=== PATIENT | male | born 1980 ===

== ENCOUNTER 2022-03-02 11:00 | Inpatient (IN) ==
[2022-03-02] MEDS ORDERED: diphenhydrAMINE CAP 25 MG CAPSULE PO PRN (11:02)
[2022-03-02] MEDS ORDERED: ALUMINUM/MAGNES/SIMETH MAX STR 30 ML UDCUP PO PRN (11:02)
[2022-03-02] MEDS ORDERED: ZALEPLON 5 MG CAPSULE PO PRN (11:02)
[2022-03-02] MEDS ORDERED: hydrALAZINE 20 MG/1 ML VIAL IV PRN (11:02)
[2022-03-02] MEDS ORDERED: ACETAMINOPHEN 325 MG TABLET PO PRN (11:02)
[2022-03-02] MEDS ORDERED: POTASSIUM CHLORIDE 20 MEQ TABLET PO PRN (11:02)
[2022-03-02] MEDS ORDERED: MAGNESIUM SULF RIDER 2 GM/50 ML PREMIX IV PRN (11:02)
[2022-03-02] MEDS ORDERED: DOCUSATE SODIUM 100 MG CAPSULE PO PRN (11:02)
[2022-03-02] MEDS ORDERED: PROMETHAZINE 25 MG TABLET PO PRN (11:02)
[2022-03-02] MEDS ORDERED: guaiFENesin/DM ER 600-30 MG TABLET PO PRN (11:02)
[2022-03-02] MEDS ORDERED: MAGNESIUM SULF RIDER 4 GM/100 ML PREMIX IV PRN (11:02)
[2022-03-02] MEDS ORDERED: ONDANSETRON 4 MG/2 ML VIAL IV PRN (11:02)
[2022-03-02] MEDS ORDERED: SODIUM CHLORIDE 0.9% 1,000 ML IV SCH (11:30)
[2022-03-02] MEDS ORDERED: LIDOCAINE 1% 50 ML VIAL MISC INJ ONE (11:42)
[2022-03-02] MEDS ORDERED: fentaNYL 100 MCG/2 ML VIAL IV ONE (11:42)
[2022-03-02] MEDS ORDERED: MIDAZOLAM 2 MG/2 ML VIAL IV ONE (11:42)
[2022-03-02] MEDS ORDERED: SODIUM CHLORIDE 0.9% 500 ML IV ONE (11:42)
[2022-03-02] MEDS: METOPROLOL TARTRATE 25 MG TABLET PO SCH ×2 (12:47→21:01)
[2022-03-02] MEDS: ALBUTEROL 2.5 MG/3 ML NEB RESP TX SCH ×2 (13:24→19:28)
[2022-03-02] MEDS: MORPHINE 2 MG/1 ML SYRINGE IV PRN ×2 (13:49→18:17)
[2022-03-02 19:21] LABS: Barbiturates Screen,Urine Negative (Negative); Benzodiazepines Screen,Urine Positive (Negative); Cannabinoid Screen,Urine Positive (Negative); Opiate Screen,Urine Positive (Negative); Phencyclidine Screen,Urine Negative (Negative)
[2022-03-02] MEDS: NICOTINE 21 MG/24 HR PATCH TRANSDERM SCH (19:31)
[2022-03-02] MEDS: TICAGRELOR 90 MG TABLET PO SCH (20:59)
[2022-03-03] MEDS: ALBUTEROL 2.5 MG/3 ML NEB RESP TX SCH ×3 (00:07→12:16)
[2022-03-03] MEDS: MORPHINE 2 MG/1 ML SYRINGE IV PRN ×4 (02:00→21:29)
[2022-03-03 04:22] LABS: Basophils % 0.2 % (0.0-0.8); Eosinophils # 0.2 10*3/uL (0.0-0.87); Eosinophils % 1.5 % (0.00-10.9); Hemoglobin 8.9 GM/DL (14.0-18.0); Immature Granulocytes % 0.4 %; Immature Granulocytes Absolute 0.05 #; Lymphocytes # 2.1 10*3/uL (1.4-4.0); Lymphocytes % 16.2 % (21.2-54.2); Mean Corpuscular HGB Conc 27.1 GM/DL (32-36); Mean Corpuscular Volume 71.8 FL (87-102); Mean Platelet Volume 9.7 FL (9.6-12.0); Monocytes # 1.4 10*3/uL (0.11-0.8); Monocytes % 10.7 % (1.7-12.7); Platelet Count 371 T/CUMM (130-400); Red Blood Count 4.58 MC/CUMM (3.8-5.5); Red Cell Distribution Width 20.1 % (9.3-17.3); White Blood Count 12.7 T/CUMM (4-12)
[2022-03-03 04:33] LABS: Hematocrit 32.9 VOL% (42.0-52.0)
[2022-03-03 04:43] LABS: Risk Ratio 3.03; VLDL Cholesterol 17.6 MG/DL
[2022-03-03 04:56] LABS: Calcium 9.2 MG/DL (8.5-10.1); Osmolality,Calculated 274.7 MOS/KG (273-304); Potassium 5.1 MMOL/L (3.5-5.1)
[2022-03-03 07:45] LABS: % Iron Saturation 4.3 % (18-50); Ferritin 10.9 ng/mL (26-388)
[2022-03-03 07:46] LABS: CKMB % 7.14 %
[2022-03-03] MEDS: ENOXAPARIN 80 MG/0.8 ML SYRINGE SUBCUT SCH ×3 (07:55→21:29)
[2022-03-03] MEDS: METOPROLOL TARTRATE 25 MG TABLET PO SCH ×2 (08:13→21:28)
[2022-03-03] MEDS: TICAGRELOR 90 MG TABLET PO SCH (08:13)
[2022-03-03] MEDS: PANTOPRAZOLE 40 MG TABLET PO SCH (08:13)
[2022-03-03] MEDS: ROSUVASTATIN 20 MG TABLET PO SCH (08:13)
[2022-03-03] MEDS: NICOTINE 21 MG/24 HR PATCH TRANSDERM SCH (08:13)
[2022-03-03] MEDS: VALSARTAN 80 MG TABLET PO SCH (08:13)
[2022-03-03] MEDS: ASPIRIN EC 81 MG TABLET PO SCH (08:14)
[2022-03-03] MEDS ORDERED: CLOPIDOGREL 300 MG TABLET PO ONE (08:19)
[2022-03-03] MEDS: FERROUS SULFATE 325 MG TABLET PO SCH ×2 (09:13→21:28)
[2022-03-03] MEDS ORDERED: KETOROLAC 30 MG/1 ML VIAL IV ONE (09:20)
[2022-03-04] MEDS: MORPHINE 2 MG/1 ML SYRINGE IV PRN ×2 (03:21→08:16)
[2022-03-04 04:42] LABS: Calcium 9.3 MG/DL (8.5-10.1); Osmolality,Calculated 278.5 MOS/KG (273-304); Potassium 3.9 MMOL/L (3.5-5.1)
[2022-03-04 04:46] LABS: Basophils % 0.3 % (0.0-0.8); Eosinophils # 0.2 10*3/uL (0.0-0.87); Eosinophils % 2.5 % (0.00-10.9); Hemoglobin 8.8 GM/DL (14.0-18.0); Immature Granulocytes % 0.5 %; Immature Granulocytes Absolute 0.05 #; Lymphocytes # 2.5 10*3/uL (1.4-4.0); Lymphocytes % 26.1 % (21.2-54.2); Mean Corpuscular HGB Conc 27.6 GM/DL (32-36); Mean Corpuscular Volume 70.1 FL (87-102); Mean Platelet Volume 10.3 FL (9.6-12.0); Monocytes # 1.2 10*3/uL (0.11-0.8); Monocytes % 12.8 % (1.7-12.7); Neutrophils % 57.8 % (38.7-73.9); Platelet Count 399 T/CUMM (130-400); Red Blood Count 4.55 MC/CUMM (3.8-5.5); Red Cell Distribution Width 20.3 % (9.3-17.3); White Blood Count 9.5 T/CUMM (4-12)
[2022-03-04 04:49] LABS: Hematocrit 31.9 VOL% (42.0-52.0)
[2022-03-04 05:04] LABS: Hypochromia 2+; Microcytosis 2+; Polychromasia Slight
[2022-03-04 05:05] LABS: Platelet Estimate Normal
[2022-03-04] MEDS: FERROUS SULFATE 325 MG TABLET PO SCH (08:14)
[2022-03-04] MEDS: VALSARTAN 80 MG TABLET PO SCH (08:15)
[2022-03-04] MEDS: ASPIRIN EC 81 MG TABLET PO SCH (08:15)
[2022-03-04] MEDS: ENOXAPARIN 80 MG/0.8 ML SYRINGE SUBCUT SCH (08:15)
[2022-03-04] MEDS: ROSUVASTATIN 20 MG TABLET PO SCH (08:15)
[2022-03-04] MEDS: PANTOPRAZOLE 40 MG TABLET PO SCH (08:15)
[2022-03-04] MEDS: METOPROLOL TARTRATE 25 MG TABLET PO SCH (08:15)
[2022-03-04] MEDS: NICOTINE 21 MG/24 HR PATCH TRANSDERM SCH (08:17)
[2022-03-04] MEDS ORDERED: CLOPIDOGREL 75 MG TABLET PO SCH ×2 (09:00)
[2022-03-04 12:15] VITALS: BP 120/72
[2022-03-06 09:06] LABS: F5DNA Reviewed By SEE COMMENTS; Factor V Leiden (R506Q) Mutati Negative (Negative)
== END 2022-03-04 12:14 | disposition home or self-care (01) | DRG 282 ==
LOC: N.CC 11:59 → N.TELEN 03-03 16:14
PROVIDERS: ADMIT Internal Medicine Cardiovascular Disease; ATTEND Internal Medicine Cardiovascular Disease
PROC: CLCCHCL (ICD-10-PCS; 2022-03-02 11:15)

== ENCOUNTER 2022-03-07 00:53 | Observation (INO) ==
[2022-03-07 01:29] LABS: Basophils % 0.3 % (0.0-0.8); Eosinophils # 0.3 10*3/uL (0.0-0.87); Eosinophils % 3.6 % (0.00-10.9); Hematocrit 27.1 VOL% (42.0-52.0); Hemoglobin 7.3 GM/DL (14.0-18.0); Immature Granulocytes % 0.1 %; Immature Granulocytes Absolute 0.01 #; Lymphocytes # 1.6 10*3/uL (1.4-4.0); Lymphocytes % 21.6 % (21.2-54.2); Mean Corpuscular HGB Conc 26.9 GM/DL (32-36); Mean Corpuscular Volume 72.8 FL (87-102); Mean Platelet Volume 10.1 FL (9.6-12.0); Monocytes # 0.6 10*3/uL (0.11-0.8); Monocytes % 8.3 % (1.7-12.7); Neutrophils % 66.1 % (38.7-73.9); Platelet Count 476 T/CUMM (130-400); Red Blood Count 3.72 MC/CUMM (3.8-5.5); Red Cell Distribution Width 20.7 % (9.3-17.3); White Blood Count 7.2 T/CUMM (4-12)
[2022-03-07 01:36] LABS: Alanine Aminotransferase 29 U/L (16-61); Albumin 3.1 G/DL (3.4-5.0); Alkaline Phosphatase 70 U/L (45-117); Aspartate Amino Transferase 37 U/L (0-37); Bilirubin,Total < 0.39 MG/DL (0.20-1.00); Blood Urea Nitrogen 19 MG/DL (7-18); Calcium 9.3 MG/DL (8.5-10.1); Carbon Dioxide 25 MMOL/L (21-32); Chloride 110 MMOL/L (98-107); Glucose 102 MG/DL (74-106); Osmolality,Calculated 278.5 MOS/KG (273-304); Potassium 4.3 MMOL/L (3.5-5.1); Sodium 139 MMOL/L (136-145); Total Protein 6.2 G/DL (6.4-8.2)
[2022-03-07 02:27] LABS: Eosinophils 4 % (0-10); Lymphocytes 24 % (20-55); Total Cells Counted 100
[2022-03-07 02:28] LABS: Hypochromia 1+; Microcytosis 1+; Platelet Estimate Normal
[2022-03-07 02:29] LABS: PT Patient Result 10.8 SECS (10.5-12.0); Partial Thromboplastin Time 30.7 SECS (23.7-32.9)
[2022-03-07] MEDS ORDERED: GLUCAGON 1 MG VIAL IM PRN (03:05)
[2022-03-07] MEDS ORDERED: DEXTROSE 10% 250 ML BAG IV PRN (03:17)
[2022-03-07 04:16] LABS: Alanine Aminotransferase 30 U/L (16-61); Albumin 3.1 G/DL (3.4-5.0); Alkaline Phosphatase 69 U/L (45-117); Aspartate Amino Transferase 33 U/L (0-37); Bilirubin,Total < 0.39 MG/DL (0.20-1.00); Blood Urea Nitrogen 17 MG/DL (7-18); Calcium 9.4 MG/DL (8.5-10.1); Carbon Dioxide 28 MMOL/L (21-32); Chloride 110 MMOL/L (98-107); Glucose 96 MG/DL (74-106); Osmolality,Calculated 280.4 MOS/KG (273-304); Sodium 140 MMOL/L (136-145); Total Protein 6.6 G/DL (6.4-8.2)
[2022-03-07 05:03] LABS: Cholesterol 83 MG/DL (50-200); HDL Cholesterol 29 MG/DL (40-60); Risk Ratio 2.86; Triglycerides 73 MG/DL (2-150); VLDL Cholesterol 14.6 MG/DL
[2022-03-07] MEDS: LACTATED RINGERS 1,000 ML IV SCH ×2 (05:36→14:51)
[2022-03-07] MEDS ORDERED: METOPROLOL TARTRATE 25 MG TABLET PO SCH (09:00)
[2022-03-07] MEDS ORDERED: ASPIRIN EC 81 MG TABLET PO SCH (09:00)
[2022-03-07] MEDS ORDERED: PANTOPRAZOLE 40 MG TABLET PO SCH (09:00)
[2022-03-07] MEDS ORDERED: ENOXAPARIN 40 MG/0.4 ML SYRINGE SUBCUT SCH (09:00)
[2022-03-07] MEDS ORDERED: ROSUVASTATIN 20 MG TABLET PO SCH (09:00)
[2022-03-07] MEDS ORDERED: FERROUS SULFATE 325 MG TABLET PO SCH (09:00)
[2022-03-07] MEDS ORDERED: CLOPIDOGREL 75 MG TABLET PO SCH (09:00)
[2022-03-07 12:46] VITALS: BP 96/52
== END 2022-03-07 14:15 | disposition home or self-care (01) ==
LOC: N.TELES 00:53 → N.ED 00:53 → SUATTDRO 03:05 → N.TELES 04:00
PROVIDERS: ADMIT Emergency Medicine; ATTEND Internal Medicine

== ENCOUNTER 2022-09-16 13:20 | Inpatient (IN) ==
[2022-09-16] MEDS ORDERED: ACETAMINOPHEN 325 MG TABLET PO PRN (15:23)
[2022-09-16] MEDS ORDERED: hydrALAZINE 20 MG/1 ML VIAL IV PRN (16:17)
[2022-09-16 16:54] LABS: Alanine Aminotransferase 19 U/L (16-61); Albumin 3.4 G/DL (3.4-5.0); Alkaline Phosphatase 98 U/L (45-117); Aspartate Amino Transferase 15 U/L (0-37); Bilirubin,Total < 0.39 MG/DL (0.20-1.00); Blood Urea Nitrogen 12 MG/DL (7-18); Calcium 9.4 MG/DL (8.5-10.1); Carbon Dioxide 24 MMOL/L (21-32); Chloride 108 MMOL/L (98-107); Glucose 121 MG/DL (74-106); Osmolality,Calculated 273.8 MOS/KG (273-304); Potassium 4.1 MMOL/L (3.5-5.1); Sodium 137 MMOL/L (136-145); Total Protein 7.1 G/DL (6.4-8.2)
[2022-09-16 16:59] LABS: Basophils % 0.4 % (0.0-0.8); Eosinophils # 0.3 10*3/uL (0.0-0.87); Eosinophils % 3.5 % (0.00-10.9); Hematocrit 26.9 VOL% (42.0-52.0); Hemoglobin 6.8 GM/DL (14.0-18.0); Immature Granulocytes % 0.3 %; Immature Granulocytes Absolute 0.03 #; Lymphocytes # 1.7 10*3/uL (1.4-4.0); Mean Corpuscular HGB Conc 25.3 GM/DL (32-36); Mean Corpuscular Volume 66.4 FL (87-102); Mean Platelet Volume 9.5 FL (9.6-12.0); Monocytes % 10.4 % (1.7-12.7); Neutrophils % 66.4 % (38.7-73.9); Platelet Count 316 T/CUMM (130-400); Red Blood Count 4.05 MC/CUMM (3.8-5.5); Red Cell Distribution Width 18.1 % (9.3-17.3); White Blood Count 9.2 T/CUMM (4-12)
[2022-09-16] MEDS: HEPARIN DRIP 25,000 UNITS/500 ML PREMIX IV SCH (17:34)
[2022-09-16 17:37] LABS: PT Patient Result 10.6 SECS (10.1-12.1)
[2022-09-16] MEDS: NICOTINE 21 MG/24 HR PATCH TRANSDERM PRN (17:48)
[2022-09-16 17:50] LABS: Anisocytosis 1+; Hypochromia 2+; Microcytosis 1+; Platelet Estimate Adequate
[2022-09-16] MEDS: WARFARIN 5 MG TABLET PO SCH (18:52)
[2022-09-17 04:59] LABS: INR 0.9; PT Patient Result 10.3 SECS (10.1-12.1)
[2022-09-17 05:10] LABS: Alanine Aminotransferase 19 U/L (16-61); Albumin 3.4 G/DL (3.4-5.0); Alkaline Phosphatase 102 U/L (45-117); Aspartate Amino Transferase 15 U/L (0-37); Bilirubin,Total < 0.39 MG/DL (0.20-1.00); Blood Urea Nitrogen 20 MG/DL (7-18); Calcium 9.6 MG/DL (8.5-10.1); Carbon Dioxide 28 MMOL/L (21-32); Chloride 106 MMOL/L (98-107); Glucose 117 MG/DL (74-106); Osmolality,Calculated 282.4 MOS/KG (273-304); Potassium 3.6 MMOL/L (3.5-5.1); Sodium 140 MMOL/L (136-145)
[2022-09-17 05:29] LABS: Basophils % 0.5 % (0.0-0.8); Eosinophils # 0.3 10*3/uL (0.0-0.87); Eosinophils % 3.8 % (0.00-10.9); Immature Granulocytes % 0.4 %; Immature Granulocytes Absolute 0.03 #; Mean Corpuscular HGB Conc 26.2 GM/DL (32-36); Mean Corpuscular Volume 65.1 FL (87-102); Mean Platelet Volume 10.2 FL (9.6-12.0); Monocytes # 0.8 10*3/uL (0.11-0.8); Neutrophils % 61.3 % (38.7-73.9); Platelet Count 355 T/CUMM (130-400); White Blood Count 8.4 T/CUMM (4-12)
[2022-09-17 05:30] LABS: Hematocrit 26.7 VOL% (42.0-52.0)
[2022-09-17 05:40] LABS: Anisocytosis 1+; Hypochromia 2+; Microcytosis 1+; Ovalocytes Slight; Polychromasia Slight
[2022-09-17 05:41] LABS: Platelet Estimate Normal
[2022-09-17] MEDS: HEPARIN DRIP 25,000 UNITS/500 ML PREMIX IV SCH (05:58)
[2022-09-17 08:03] LABS: % Iron Saturation 3.2 % (18-50)
[2022-09-17 08:16] LABS: Folate 15.85 NG/ML (5.38-24.0)
[2022-09-17] MEDS: ASPIRIN EC 81 MG TABLET PO SCH (09:19)
[2022-09-17] MEDS: FERRIC GLUCONATE COMPLEX 125 MG in SODIUM CHLORIDE 0.9% 100 ML IV SCH (10:49)
[2022-09-17] MEDS ORDERED: DIAZEPAM 5 MG TABLET PO ONE (11:53)
[2022-09-17] MEDS: SODIUM CHLORIDE 0.45% 1,000 ML IV SCH (17:20)
[2022-09-17] MEDS: WARFARIN 5 MG TABLET PO SCH (19:05)
[2022-09-17 21:52] LABS: Barbiturates Screen,Urine Negative (Negative); Benzodiazepines Screen,Urine Negative (Negative); Cannabinoid Screen,Urine Positive (Negative); Opiate Screen,Urine Positive (Negative); Phencyclidine Screen,Urine Negative (Negative)
[2022-09-17] MEDS: NICOTINE 21 MG/24 HR PATCH TRANSDERM PRN (22:02)
[2022-09-18 02:21] LABS: Alanine Aminotransferase 17 U/L (16-61); Albumin 3.1 G/DL (3.4-5.0); Alkaline Phosphatase 91 U/L (45-117); Aspartate Amino Transferase 15 U/L (0-37); Bilirubin,Total < 0.39 MG/DL (0.20-1.00); Blood Urea Nitrogen 16 MG/DL (7-18); Calcium 9.5 MG/DL (8.5-10.1); Carbon Dioxide 26 MMOL/L (21-32); Chloride 107 MMOL/L (98-107); Glucose 98 MG/DL (74-106); Osmolality,Calculated 279.4 MOS/KG (273-304); Potassium 4.3 MMOL/L (3.5-5.1); Sodium 140 MMOL/L (136-145); Total Protein 6.7 G/DL (6.4-8.2)
[2022-09-18 02:23] LABS: Basophils # 0.1 10*3/uL (0.0-0.2); Basophils % 0.7 % (0.0-0.8); Eosinophils # 0.4 10*3/uL (0.0-0.87); Eosinophils % 4.8 % (0.00-10.9); Hematocrit 26.8 VOL% (42.0-52.0); Hemoglobin 6.9 GM/DL (14.0-18.0); Immature Granulocytes % 0.5 %; Immature Granulocytes Absolute 0.04 #; Lymphocytes # 2.6 10*3/uL (1.4-4.0); Lymphocytes % 30.5 % (21.2-54.2); Mean Corpuscular HGB Conc 25.7 GM/DL (32-36); Mean Corpuscular Volume 65.2 FL (87-102); Mean Platelet Volume 9.7 FL (9.6-12.0); Monocytes % 11.9 % (1.7-12.7); Neutrophils % 51.6 % (38.7-73.9); Platelet Count 346 T/CUMM (130-400); Red Blood Count 4.11 MC/CUMM (3.8-5.5); Red Cell Distribution Width 18.2 % (9.3-17.3); White Blood Count 8.6 T/CUMM (4-12)
[2022-09-18 02:26] LABS: INR 0.9; PT Patient Result 10.3 SECS (10.1-12.1)
[2022-09-18] MEDS: HEPARIN DRIP 25,000 UNITS/500 ML PREMIX IV SCH ×2 (05:56)
[2022-09-18] MEDS ORDERED: SODIUM CHLORIDE 0.9% 1,000 ML IV PRN (08:30)
[2022-09-18] MEDS: ASPIRIN EC 81 MG TABLET PO SCH (08:53)
[2022-09-18] MEDS: FERRIC GLUCONATE COMPLEX 125 MG in SODIUM CHLORIDE 0.9% 100 ML IV SCH (09:19)
[2022-09-18] MEDS ORDERED: MAGNESIUM HYDROXIDE SUSP 30 ML UDCUP PO PRN (10:48)
[2022-09-18] MEDS ORDERED: LACTULOSE 20 GM/30 ML UDCUP PO PRN (10:48)
[2022-09-18] MEDS: DOCUSATE SODIUM 100 MG CAPSULE PO SCH ×3 (11:31→21:04)
[2022-09-18] MEDS: SODIUM CHLORIDE 0.45% 1,000 ML IV SCH (16:20)
[2022-09-18] MEDS: WARFARIN 5 MG TABLET PO SCH (17:55)
[2022-09-18] MEDS: ENOXAPARIN 100 MG/ML SYRINGE SUBCUT SCH (21:05)
[2022-09-18 23:33] LABS: Hematocrit 29.7 VOL% (42.0-52.0); Hemoglobin 8.3 GM/DL (14.0-18.0)
[2022-09-19 05:22] LABS: Alanine Aminotransferase 17 U/L (16-61); Albumin 3.4 G/DL (3.4-5.0); Alkaline Phosphatase 104 U/L (45-117); Aspartate Amino Transferase 13 U/L (0-37); Bilirubin,Total < 0.39 MG/DL (0.20-1.00); Blood Urea Nitrogen 20 MG/DL (7-18); Calcium 9.4 MG/DL (8.5-10.1); Carbon Dioxide 24 MMOL/L (21-32); Chloride 108 MMOL/L (98-107); Glucose 95 MG/DL (74-106); Osmolality,Calculated 277.7 MOS/KG (273-304); Potassium 4.4 MMOL/L (3.5-5.1); Sodium 138 MMOL/L (136-145); Total Protein 7.3 G/DL (6.4-8.2)
[2022-09-19 05:32] LABS: Partial Thromboplastin Time 47.1 SECS (23.7-32.9)
[2022-09-19 05:43] LABS: Basophils # 0.1 10*3/uL (0.0-0.2); Eosinophils # 0.5 10*3/uL (0.0-0.87); Eosinophils % 6.3 % (0.00-10.9); Hematocrit 33.8 VOL% (42.0-52.0); Hemoglobin 9.4 GM/DL (14.0-18.0); Immature Granulocytes % 0.7 %; Immature Granulocytes Absolute 0.05 #; Lymphocytes # 2.2 10*3/uL (1.4-4.0); Lymphocytes % 30.5 % (21.2-54.2); Mean Corpuscular HGB Conc 27.8 GM/DL (32-36); Mean Corpuscular Volume 70.1 FL (87-102); Monocytes # 0.8 10*3/uL (0.11-0.8); Neutrophils % 50.5 % (38.7-73.9); Platelet Count 371 T/CUMM (130-400); Red Blood Count 4.82 MC/CUMM (3.8-5.5); Red Cell Distribution Width 22.1 % (9.3-17.3); White Blood Count 7.2 T/CUMM (4-12)
[2022-09-19 06:13] LABS: Ovalocytes Few; Platelet Estimate Normal; Polychromasia Slight; Target Cells Few
[2022-09-19 06:14] LABS: Anisocytosis 2+
[2022-09-19] MEDS: ASPIRIN EC 81 MG TABLET PO SCH (08:33)
[2022-09-19] MEDS: DOCUSATE SODIUM 100 MG CAPSULE PO SCH (08:33)
[2022-09-19 08:50] VITALS: BP 142/92
[2022-09-19] MEDS ORDERED: NICOTINE 21 MG/24 HR PATCH TRANSDERM SCH (09:00)
[2022-09-19] MEDS ORDERED: METOPROLOL TARTRATE 25 MG TABLET PO SCH (09:00)
[2022-09-19] MEDS: FERRIC GLUCONATE COMPLEX 125 MG in SODIUM CHLORIDE 0.9% 100 ML IV SCH (09:19)
[2022-09-19] MEDS: ENOXAPARIN 100 MG/ML SYRINGE SUBCUT SCH (09:22)
[2022-09-19] MEDS ORDERED: WARFARIN 7.5 MG TABLET PO ONE (10:15)
[2022-09-19] MEDS ORDERED: WARFARIN 2.5 MG TABLET PO ONE (18:00)
== END 2022-09-19 12:54 | disposition home or self-care (01) | DRG 176 ==
LOC: N.ED 13:20 → N.EDINP 15:23 → SUATTDRO 15:23 → N.TELES 17:56
PROVIDERS: ADMIT Internal Medicine; ATTEND Internal Medicine